=== PATIENT | male | born 1960 | race Caucasian/White ===

== ENCOUNTER 2018-07-12 15:22 | Emergency (ER) | payer OTHER ==
[~2018-07-12] VITALS: Ht 188 cm; Wt 108.9 kg
[2018-07-12 15:28] VITALS: BP_SYST 132
[2018-07-12] MEDS ORDERED: CLINDAMYCIN PHOSPHATE 300 MG/2 ML VIAL IM ONE (15:45)
[2018-07-12] MEDS ORDERED: fentaNYL CITRATE/PF 100 MCG/2 ML AMP IM ONE (15:45)
[2018-07-12] MEDS ORDERED: LIDOCAINE 1%, 20 ML MDV 20 ML ONE (16:03)
[2018-07-12 16:30] VITALS: BP_SYST 132
== END 2018-07-12 16:30 | disposition home or self-care (01) ==
LOC: SED 15:22
DX: I73.89 Other specified peripheral vascular diseases (principal); L03.116 Cellulitis of left lower limb; L03.115 Cellulitis of right lower limb; R03.0 Elevated blood-pressure reading, without diagnosis of hypertension
CPT/HCPCS: 96372; 99283; J2001; J3010; J3490

== ENCOUNTER 2019-03-12 16:38 | Emergency (ER) | payer OTHER ==
[~2019-03-12] VITALS: Ht 188 cm; Wt 108.9 kg
[2019-03-12 17:13] VITALS: BP_SYST 143
[2019-03-12 18:10] VITALS: BP_SYST 140
== END 2019-03-12 18:10 | disposition home or self-care (01) ==
LOC: SED 16:38
DX: I87.8 Other specified disorders of veins (principal); R03.0 Elevated blood-pressure reading, without diagnosis of hypertension
CPT/HCPCS: 99283